=== PATIENT | male | born 1995 | race Caucasian/White ===

== ENCOUNTER 2021-04-05 10:43 | Emergency (ER) | payer OTHER, SELFPAY ==
[2021-04-05 11:06] VITALS: BP 138/87; PULSE 82; RESP 16; TEMP 38; O2SAT 99
--- NOTE | 2021-04-05 11:32 | ED.SKABFB ---
HPI - Skin/Abscess/Foreign Bdy General Chief complaint: Skin/Abscess/Foreign Body Stated complaint: Bee sting on right lower side Time Seen by Provider: 04/05/21 11:32 Source: patient, RN notes reviewed and old records reviewed Mode of arrival: ambulatory Limitations: no limitations History of Present Illness HPI narrative: 25 year old male who presents to [facility] care with complaints of being stung by a bee yesterday has large 9.5cm x 13cm red whelping area to his right lateral side which is red, warm and painful. Patient states that it feels like he is being stung by fire ants.Patient states that he has taken his normal allergy pill of Zysol but has not applied any type of ointment to inflamed area but has applied some ice.. Patient denies any shortness of breath or any difficulty swallowing or any other symptoms. MD complaint: insect bite/sting Related Data Allergies Allergy/AdvReac Type Severity Reaction Status Date / Time diphenhydramine AdvReac Drowsy Verified 04/05/21 11:04 [From [facility]] Review of Systems Review of Systems: CONSTITUTIONAL: Denies fever, chills, or sweats. EYES: Denies visual changes, redness, or discharge. ENT: Positive rhinorrhea,no acute congestion, sore throat, or otalgia. CARDIOVASCULAR: Denies chest pain, palpitations, or edema. RESPIRATORY: Denies cough or dyspnea. GASTROINTESTINAL: Denies abdominal pain, nausea, vomiting, or diarrhea. GENITOURINARY: Denies dysuria or hematuria. SKIN: Positive for local red inflamed swollen reaction to bee sting to right lateral side of lower chest upper abdomen area MUSCULOSKELETAL: Denies back pain, joint pain, or myalgia. NEUROLOGIC: Denies headache, numbness, or weakness. PSYCHIATRIC: History of anxiety or depression. All systems reviewed & are unremarkable except as noted in HPI and below PMFSH Past Medical History Medical History (Updated 04/10/21 @ 08:43 by Christine Quezada NP) Anxiety with depression Seasonal allergies Surgical History Surgical History (Updated 04/10/21 @ 08:39 by Christine Quezada NP) History of tonsillectomy Family History Family History (Updated 04/10/21 @ 08:41 by Christine Quezada NP) Father Diabetes mellitus Grandparent Heart disease Mother Epilepsy Social History Social History (Updated 04/10/21 @ 08:40 by Christine Quezada NP) Smoking status: Never smoker Alcohol intake: never Substance use: current Substance use type: marijuana Living arrangements: with family Gender identity (if verbalized by the patient): Male Comments At time of signature, agree with nursing past medical, surgical, social and family history. There is no relevant family history pertinent to the presenting complaint Exam Narrative: GENERAL: Well-appearing, well-nourished, and in no acute distress. HEAD: Normocephalic, atraumatic. EYES: PERRLA and EOMI. ENT: Nares clear, some clear rhinorrhea no epistaxis. Mucous membranes moist.TM's normal with good light reflex, throat pink with no lesions or exudates tonsil absent NECK: Supple.no lymphadenopathy CHEST: Clear to auscultation. No respiratory distress.SAO2 99% on room air HEART: Regular rate and rhythm. No murmur heard. Normal peripheral pulses. ABDOMEN: Soft, nontender, nondistended, normal active bowel sounds. EXTREMITIES: Normal range of motion. No edema. SKIN: Warm, dry, red whelping area to right lateral chest upper abdomen area where he was stung by bee yesterday which is warm to touch and with discomfort area 9.5cm X13cm, no blistering or drainage from site. Patient has applied ice to area. NEURO: No focal deficits. Alert and oriented x3. Course Vital Signs Vital signs: Vital Signs Temperature 38.0 C H 04/05/21 11:06 Pulse Rate 82 04/05/21 11:06 Respiratory Rate 16 04/05/21 11:06 Blood Pressure 138/87 04/05/21 11:06 Pulse Oximetry 99 04/05/21 11:06 Temperature 38.0 C H 04/05/21 11:06 Pulse Rate 82 04/05/21 11:06 Respiratory Rat
== END 2021-04-05 11:55 | disposition home or self-care (01) ==
PROVIDERS: Emergency Provider Registered Nurse
DX: T63.441A Toxic effect of venom of bees, accidental (unintentional), initial encounter (principal)
CPT/HCPCS: 99213; G0463